=== PATIENT | female | born 2000 | race African-American/Black ===

== ENCOUNTER 2021-06-26 14:36 | Emergency (ER) | payer MEDICAID, SELFPAY ==
[2021-06-26 14:47] VITALS: BP 118/62; PULSE 73; RESP 16; TEMP 36.2; O2SAT 100
--- NOTE | 2021-06-26 15:23 | ED.BACK ---
HPI - Back Pain/Injury General Chief Complaint: Urogenital-Female Stated Complaint: BACK PAIN S/P UTI Source: patient Mode of arrival: ambulatory Limitations: no limitations History of Present Illness HPI Narrative: 20-year-old female presents to [facility] with complaints of left-sided mid back pain for the past 8 days. Patient reports that she currently has no pain. Patient reports that she feels like the pain has been improving over the past few days. Patient has not tried taking any [id number] medications for her symptoms. Patient reports that she did have unprotected intercourse approximately 2 weeks ago and took a Plan B tablet at that time. Patient denies vaginal discharge, vaginal itching or vaginal odor. Patient reports that she is concerned of STDs. Patient reports that she was treated for urinary tract infection 2 weeks ago. Patient denies current urinary symptoms, abdominal pain, fever, body aches, chills, nausea, vomiting or diarrhea. MD elicited complaint: back pain Onset (ago): day(s) (8) Timing: constant Similar Symptoms Previously: No Radiation: none Exacerbating factors: none Relieving factors: none Associated symptoms: denies other symptoms Related Data Home Medications Medication Instructions Recorded Confirmed No Home Medications 06/26/21 06/26/21 Allergies Allergy/AdvReac Type Severity Reaction Status Date / Time No Known Allergies Allergy Verified 06/26/21 14:46 Review of Systems Constitutional: Constitutional: Denies chills, Denies fatigue, Denies fever(s) and Denies weakness ENT: Denies sore throat Cardiovascular: Cardiovascular: Denies chest pain Respiratory: Respiratory: Denies cough, Denies dyspnea and Denies wheezing Gastrointestinal: Gastrointestinal: Denies abdominal pain, Denies diarrhea, Denies nausea and Denies vomiting Musculoskeletal: Musculoskeletal: Reports back pain Comments: Improving back pain Integumentary/Breasts: Skin/Breast: Denies rash PMFSH Social History Social History (Updated 06/26/21 @ 15:25 by Reny Farias APRN) Smoking status: Never smoker Exam Const: General: no acute distress and alert Nutritional Appearance: well nourished Orientation/consciousness: patient oriented x3 Eyes: Pupils: Equal, round and reactive pupils present Neck: Neck: normal visual inspection Resp: Effort & Inspection: normal respiratory effort, not labored and not tachypneic Auscultation: clear to auscultation bilaterally Cardio: Rate: regular rate Rhythm: regular rhythm GI: Inspection: non-distended Auscultation: normal bowel sounds : General: Yes bladder normal to palpation and Yes no CVA tenderness Other: Patient refuses vaginal exam Back/Spine/Pelvis: Back: no CVA tenderness Other: No pain noted upon palpation. Skin: General skin exam: normal color Rashes: no rashes Wounds: no wounds Neuro: General: patient oriented x3, moves all extremities, no meningeal signs, no focal motor deficits and CN's II-XI intact bilaterally Speech: normal speech Gait exam (Neuro): Normal gait present Extrem: General: normal to inspection Psych: Appearance: grossly normal Mental Status: mental status grossly normal Affect: normal affect Attitude: cooperative Course Course Level of Care: Express Care Visit Vital Signs Vital signs: Vital Signs Temperature 36.2 C L 06/26/21 14:47 Pulse Rate 73 06/26/21 14:47 Respiratory Rate 16 06/26/21 14:47 Blood Pressure 118/62 06/26/21 14:47 Pulse Oximetry 100 06/26/21 14:47 Temperature 36.2 C L 06/26/21 14:47 Pulse Rate 73 06/26/21 14:47 Respiratory Rate 16 06/26/21 14:47 Blood Pressure 118/62 06/26/21 14:47 Pulse Oximetry 100 06/26/21 14:47 MDM - Back Pain/Injury MDM Narrative Medical decision making narrative: Urine for chlamydia, gonorrhea and trichomonas sent to lab. Patient agrees to take [id number] Tylenol or ibuprofen as needed if pain would return. Alexx
== END 2021-06-26 15:32 | disposition home or self-care (01) ==
PROVIDERS: Emergency Provider Nurse Practitioner Family
DX: M54.9 Dorsalgia, unspecified (principal)
CPT/HCPCS: 81003; 87491; 87591; 87661; 99214; G0463